=== PATIENT | female | born 1965 | race Caucasian/White ===

== ENCOUNTER 2016-08-30 00:26 | Emergency (ER) | payer BC ==
[~2016-08-30] VITALS: Ht 165.1 cm; Wt 88.5 kg
[2016-08-30] MEDS ORDERED: HYDROCHLOROTH12.5 M1 PO (00:32)
[2016-08-30] MEDS ORDERED: UNICOMPLEX M TA1 TA1 PO (00:33)
[2016-08-30] MEDS ORDERED: LANSOPRAZOLE30 MG PO (00:33)
[2016-08-30] MEDS ORDERED: ROBAXIN500 MG PO (02:02)
[2016-08-30] MEDS ORDERED: HYDROCODONE-AP1 EAC6 PO (02:02)
[2016-08-30] MEDS ORDERED: IBUPROFEN 600600 M1 PO (02:02)
[2016-08-30 02:20] VITALS: BP 148/91
== END 2016-08-30 02:21 | disposition home or self-care (01) ==
LOC: ER 00:26
DX: S43.401A Unspecified sprain of right shoulder joint, initial encounter (principal); I10 Essential (primary) hypertension; Z88.0 Allergy status to penicillin; F10.99 Alcohol use, unspecified with unspecified alcohol-induced disorder; X58.XXXA Exposure to other specified factors, initial encounter; Y93.89 Activity, other specified; Y92.89 Other specified places as the place of occurrence of the external cause; Y99.8 Other external cause status